=== PATIENT | male | born 1970 | race Caucasian/White ===

== ENCOUNTER 2017-06-11 12:42 | Emergency (ER) | payer MEDICARE ==
[~2017-06-11] VITALS: Ht 185.4 cm; Wt 108.9 kg
[2017-06-11 13:13] VITALS: BP 143/98
[2017-06-11] MEDS ORDERED: NITROGLYCERIN 0.4 MG SL TAB SL ONE (13:15)
[2017-06-11] MEDS ORDERED: ASPirin 81 mg TAB PO ONE (13:15)
[2017-06-11 13:27] LABS: Basophils # (auto) 0.1 uL; Basophils % (auto) 0.6 % (0.0-2.0); Eosinophils # (auto) 0.1 uL; Eosinophils % (auto) 0.7 % (0.0-7.0); Hematocrit 50.1 % (41.0-53.0); Lymphocytes # (auto) 2.5 uL; Lymphocytes % (auto) 22.3 % (10.0-50.0); Mean Corpuscular Hemoglobin 29.6 pg (28.0-32.0); Mean Corpuscular Volume 87.1 fL (80.0-100.0); Monocytes # (auto) 0.8 uL; Monocytes % (auto) 6.6 % (0.0-12.0); Neutrophils # (auto) 7.9 uL; Neutrophils % (auto) 69.8 % (37.0-80.0); Platelet Count (auto) 430 10^3/uL (140-450); Red Blood Cells 5.75 10^6/uL (4.5-5.90); Red Cell Distribution Width 15.2 % (11.8-14.3); White Blood Cell 11.3 10^3/uL (4.4-10.8)
[2017-06-11] MEDS ORDERED: SODIUM CHLORIDE 0.9% 1,000 ML IV ONE ×2 (13:33)
[2017-06-11 13:35] LABS: Urine Bacteria NONE SEEN /hpf (None Seen); Urine Blood Negative /uL (Negative); Urine Hyaline Cast FEW /lpf (0 - 2); Urine Mucus FEW (None Seen); Urine WBC 2 /hpf (0 - 3)
[2017-06-11 13:36] LABS: INR 1.02 (0.9-1.15); Prothrombin Time 11.1 sec (9.37-12.3)
[2017-06-11 13:38] LABS: Amphetamine Screen, Urine NEGATIVE (NEGATIVE); Barbiturate Scree,Urine NEGATIVE (NEGATIVE); Benzodiazephine Screen, Urine NEGATIVE (NEGATIVE); Cannabinoid Screen, Urine POSITIVE (NEGATIVE); Cocaine Screen, Urine NEGATIVE (NEGATIVE); Opiate Scree,Urine NEGATIVE (NEGATIVE); Phencyclidine Screen, Urine NEGATIVE (NEGATIVE)
[2017-06-11 13:44] LABS: Alanine Aminotransferase 25 U/L (16-61); Albumin 4.6 g/dL (3.4-5.0); Alkaline Phosphatase 164 U/L (45-117); Anion Gap 14 (5-15); Aspartate Aminotransferase 25 U/L (15-37); BUN/Creatinine Ratio 13.3; Bilirubin, Total 0.4 mg/dL (0.2-1.0); Blood Urea Nitrogen 19 mg/dL (7-18); Calcium 9.9 mg/dL (8.5-10.1); Carbon Dioxide 22 mmol/L (21-32); Chloride 105 mmol/L (98-107); GFR African American 68 mL/min; GFR Non-African American 57 mL/min; Glucose 95 mg/dL (74-106); Potassium 3.1 mmol/L (3.5-5.1); Sodium 141 mmol/L (136-145); Total Protein 8.9 g/dL (6.4-8.2)
== END 2017-06-11 15:09 | disposition home or self-care (01) ==
LOC: ER 12:42
DX: F12.10 Cannabis abuse, uncomplicated (principal); F17.210 Nicotine dependence, cigarettes, uncomplicated; E86.0 Dehydration; R53.1 Weakness
CPT/HCPCS: 36415; 71045; 80053; 80307; 81001; 82962; 83880; 84443; 84484; 85025; 85610; 85730; 93005; 99285; J7030